=== PATIENT | female | born 1945 | race Caucasian/White ===

== ENCOUNTER → 2017-01-08 16:56 | Outpatient (CLI) | payer BC, MEDICARE ==
[2015-07-19 23:37] VITALS: BMI 33.3
[~2017-01-08 16:56] MED LIST: ACETAMINOPHEN500 M1 PO; AUGMENTIN 875-11 TAB PO; BETAPACE 120 M120 MG PO; CARDIZEM CD180 MG PO; CARDURA2 MG PO; CELEXA10 MG PO; FLAGYL500 MG PO; FLUTICASONE PRO16 GM NS; GLUCOPHAGE1000 MG PO; HCTZ25 MG PO; PRAVACHOL20 MG PO; PRINIVIL20 MG PO; SORINE80 MG PO; TIAZAC/CARDIZE240 M1 PO; ZYRTEC10 MG PO
== END | disposition home or self-care (01) ==
LOC: D.MAMMO 16:00
DX: Z12.31 Encounter for screening mammogram for malignant neoplasm of breast (principal)

== ENCOUNTER → 2017-01-16 16:35 | Outpatient (CLI) | payer BC, MEDICARE ==
[2015-07-19 23:37] VITALS: BMI 33.3
== END | disposition home or self-care (01) ==
LOC: D.MAMMO 11:30
DX: R92.8 Other abnormal and inconclusive findings on diagnostic imaging of breast (principal)

== ENCOUNTER 2017-01-27 17:33 | Inpatient (IN) | payer MEDICARE ==
[~2017-01-27] VITALS: Ht 160 cm; Wt 78.6 kg
--- NOTE | ~2017-01-27 | HEMODYNAMI ---
PATIENT:GILBERTO SAMAYOA MEDICAL RECORD: [id number] : 49 LOCATION:[address] ADMISSION DATE: 01/27/17 Generatedon:02/02/201710:45 Patient name: GILBERTO SAMAYOA Patient #: [id number] SSN: DO B: 1945 Date of study: 02/02/2017 Page: Of Hemodynamic Procedure Report Patient Data Patient Demographics Procedure consent was obtained First Name: GILBERTO Gender: Female Last Name: YAO : 1945 Patient #: [id number] Age: 71 year(s) Race: Additional ID: [id number] Contact details [address]: [address] [place] [address] State: [place] City: [place] Zip code: [address] Past Medical History Allergies Allergen Reaction Date Comments Reported Grains 07/20/2015 Admission Admission Data Admission Date: 01/27/2017 Admission Time: 18:30 Room #: [facility] Procedure Procedure Types Cath Procedure Diagnostic Procedure PPM/ICD PPM Dual Implant Procedure Description Procedure Date Procedure Date: 02/02/2017 Procedure Start Time: 9:52 Procedure End Time: 10:44 Procedure Staff Name Function Samy Chan MD Performing Physician Yuan Madden RT Scrub Bekah Pastrana RN Nurse Yuan Madden RT Monitor Procedure Data Cath Procedure Fluoroscopy Diagnostic fluoroscopy Total fluoroscopy Time: 6.5 time: 6.5 min min Diagnostic fluoroscopy Total fluoroscopy dose: 172 dose: 172 mGy mGy Contrast Material Contrast Material Type Amount (ml) Visipaque 270 10 Procedure Medications Medication Administration Route Dosage Ancef (1Gm/50ml NS) I.V.P.B 1 g Ancef Irrigation Topical 1 g (1gm/500ml NS) Lidocaine 1% added to field 20 Versed I.V. 2 mg Fentanyl I.V. 25 mcg Versed I.V. 1 mg Lopressor I.V. 5 mg Heparin Flush Bag added to field 1 bags (1000units/500ml NS) Hemodynamics Rest Heart Rate: 62 (bpm) Snapshots Pre Cath Intra NCS Post Cath Vital Signs Time Heart Resp SPO2 NIBP (mmHg) Rhythm Pain Sedation Rate (ipm) (%) Status Level (bpm) 9:30:51 63 19 97 239/120(202) NSR 0 (11) 10(A) , No pain 9:35:37 62 14 97 230/118(177) NSR 0 (11) 10(A) , No pain 9:40:30 63 17 96 236/115(190) NSR 0 (11) 10(A) , No pain 9:45:05 61 14 99 211/110(181) NSR 0 (11) 10(A) , No pain 9:50:47 98 15 100 216/105(174) NSR 0 (11) 10(A) , No pain 9:55:21 65 16 97 207/108(163) NSR 0 (11) 9(A) , No pain 10:01:05 67 15 95 222/109(170) NSR 0 (11) 9(A) , No pain 10:05:38 66 16 95 207/113(171) NSR 0 (11) 9(A) , No pain 10:10:10 64 16 94 204/109(172) NSR 0 (11) 9(A) , No pain 10:14:45 57 16 94 208/98(174) NSR 0 (11) 9(A) , No pain 10:20:29 58 15 97 219/117(166) NSR 0 (11) 9(A) , No pain 10:25:07 59 15 100 220/112(185) NSR 0 (11) 9(A) , No pain 10:29:52 62 14 100 222/112(175) NSR 0 (11) 10(A) , No pain 10:34:35 60 16 100 212/114(185) NSR 0 (11) 10(A) , No pain 10:39:34 63 10 100 Measuring NSR 0 (11) 10(A) , No pain 10:40:58 62 11 100 Time NSR 0 (11) 10(A) Exceeded , No pain Medications Time Medication Route Dose Verified Delivered Reason Notes E ffectiveness by by 9:26:31 Ancef (1Gm/50ml I.V.P.B 1 g Samy Buffie used for NS) Rocio Pastrana RN procedure 9:41:55 Ancef Irrigation Topical 1 g Samy Buffie used for (1gm/500ml NS) Rocio Pastrana RN procedure 9:42:28 Lidocaine 1% added 20ml Samy Samy for local to vial Rocio Chan MD anesthetic field 9:43:36 Heparin Flush added 1 Samy Buffie Bag to bags Rocio Pastrana RN (1000units/500ml field TREJO NS) 9:53:24 Versed I.V. 2 mg Samy Buffie for sedation Rocio Pastrana RN, MD 9:53:30 Fentanyl I.V. 25 Samy Buffie for sedation mcg Rocio Pastrana RN, MD 10:07:05 Versed I.V. 1 mg Samy Buffie for sedation Rocio Pastrana RN, MD 10:11:57 Lopressor I.V. 5 mg Samy Buffie for Rocio Pastrana RN hypertension MD Procedure Log Time Note 8:54:31 Informed consent obtained and on chart 8:54:35 Diagnostic Cath Status : Elective 8:55:58 Yuan Madden RT(R) (CV) sent for patient. Start room use. 8:56:23 Time tracking: Regular hours 8:56:28 Plan of Care:Hemodynamics will remain stable., Cardiac rhythm will remain stable., Comfort level will be maintained., Respiratory function will remain adequate., Patient/ family verbilizes understanding of procedure., Procedure tolerated without complication., Recovers from procedure without complications.. 9:26:31 Ancef (1Gm/50ml NS) 1 g I.V.P.B was administered by Bekah Pastrana RN; used for procedure; 9:26:32 Patient received from Med II to CCL 3 Alert and oriented. Tansferred to table in Supine position. 9:28:11 Warm blankets applied, and antonio hugger turned on for patient comfort. 9:28:12 Correct patient and procedure confirmed by team. 9:28:13 ECG and BP/O2 sat monitors applied to patient. 9:28:14 Vital chart was started 9:28:17 Baseline sample Acquired. 9:28:24 Rhythm: sinus rhythm 9:28:40 PATIENT HAS SICK SINUS SYNDROME 9:28:42 Full Disclosure recording started 9:33:12 H&P Date Dictated: 01/27/2017 ER History on chart.. 9:33:23 Pre-procedure instructions explained to patient. 9:33:46 Pre-op teaching completed and patient verbalized understanding. 9:33:59 Family in patients room. 9:34:05 Patient NPO since Midnight. 9:34:10 Is the patient allergic to Iodine/contrast media? No. 9:35:51 Use device set Pacemaker Set 9:36:01 Immobilizer Sling Small opened to sterile field. 9:36:15 Medline Cath Pack opened to sterile field. 9:36:34 Previous problem with sedation/anesthesia? No ? 9:36:53 Snore? Yes 9:40:50 Patient diabetic? Yes. 9:40:51 If diabetic: On Metformin? Yes 9:40:57 If on Metformin: Last Dose? 01/31/2017 9:41:00 Sleep apnea? No 9:41:02 Deviated septum? No 9:41:03 Opens mouth fully? Yes 9:41:05 Sticks out tongue? Yes 9:41:20 Airway obstruction? No ? 9:41:26 Patient pain scale 0/10 ?. 9:41:44 IV patent on arrival in left hand with 0.9% NaCl at KVO. 9:41:55 Ancef Irrigation (1gm/500ml NS) 1 g Topical was administered by Bekah Pastrana RN; used for procedure; 9:42:10 IV started by Bekah Pastrana RN inleft antecubital with a 18 gauge IV catheter with 0.9% NaCl at KVO. 9:42:28 Lidocaine 1% 20ml vial added to field was administered by Samy Chan MD; for local anesthetic; 9:42:33 Left chest area was prepped with chlora-prep and draped in sterile fashion 9:43:36 Heparin Flush Bag (1000units/500ml NS) 1 bags added to field was administered by Bekah Pastrana RN; ; 9:43:47 Medtronic medical sales representative SHANI DENNISOE present for procedure. 9:44:43 Pre sharps counted by scrub and verified by RN: Sutures: 2 Sponges: 5 Stick needles: 4 Skin needles: 2 Blade: 1 Cautery: 1 9:45:18 Grounding pad site Left thigh. 9:46:26 Micropuncture VSI 4FR kit opened to sterile field. 9:46:27 Micropuncture VSI 4FR kit opened to sterile field. 9:47:32 2.0 Silk 685H opened to sterile field. 9:47:33 Cautery Tip Executive Coach opened to sterile field. 9:47:41 3.0 Vicryl Single Pack [id number] opened to sterile field. 9:48:19 Medtronic Advisa MRI PPM Dual Generator opened to sterile field. 9:48:59 Medtronic 5076-45 PPM Lead opened to sterile field. 9:49:05 Medtronic 4074-52 PPM Lead opened to sterile field. 9:52:29 Procedure started. 9:52:37 Physician arrived 9:52:37 --------ALL STOP TIME OUT------ 9:52:38 Final Timeout: patient, procedure, and site verified with staff and physician. All members of the team are in agreement. 9:52:40 Left chest site verified by team. 9:52:43 Physical assessment completed. ASA score P 2 - A patient with mild systemic disease as per Samy Chan MD. 9:52:47 Sedation plan: IV Moderate Sedation Versed, Fentanyl 9:52:57 Grounding pad site free from injury. 9:53:24 Versed 2 mg I.V. was administered by Bekah Pastrana RN; for sedation; 9:53:30 Fentanyl 25 mcg I.V. was administered by Bekah Pastrana RN; for sedation; 9:53:45 Lidocaine 2% to left subclavicular area by Samy Chan MD. 9:53:58 Incision made to left subclavicular area. 9:54:51 Generator pocket made/opened. 9:56:21 IV Extension Set opened to sterile field. 9:56:22 IV Extension Set opened to sterile field. 10:01:10 MICRO PUNCTURE USED FOR ACCESS X 2 10:02:09 7Fr Safe Sheath opened to sterile field. 10:02:10 7Fr Safe Sheath opened to sterile field. 10:02:32 Left subclavian vein accessed with 7Fr Safe Sheath. 10:06:12 Ventricular lead inserted and advanced. 10:06:[address] Peel-a-way sheath was split and removed. 10:06:20 Atrial lead inserted and advanced. 10:06:21 Peel-a-way sheath was split and removed. 10:07:05 Versed 1 mg I.V. was administered by Bekah Pastrana RN; for sedation; 10:07:20 Baseline sample Acquired. 10:07:43 Ventricular lead positioned. 10:07:48 Ventricular lead tested. 10:09:45 Ventricular lead repositioned. 10:11:38 Ventricular lead tested. 10:11:44 Atrial lead positioned. 10:11:57 Lopressor 5 mg I.V. was administered by Bekah Pastrana RN; for hypertension; 10:14:49 Atrial lead tested. 10:22:09 Ventricular lead attachment was completed with 2-0 silk. 10:24:14 Atrial lead attachment was completed with 2-0 silk. 10:25:46 PPM Dual was attached to lead(s) and inserted into pocket. 10:28:06 Subcutaneous closure was completed with 3-0 vicryl. 10:28:53 SKIN CLOSED WITH LJ 10:32:08 SITE COVERED WITH EYE PATCH AND PRESSURE DRESSING 10:32:32 PARAMETERS PLACED IN CHART 10:32:39 Procedure ended.(Physican Out) 10:35:33 Fluoroscopy time 06.50 minutes. 10:35:41 Fluoroscopy dose: 172 mGy 10:35:41 Flurop Dose total: 172 10:35:47 Contrast amount:Visipaque 270 10ml. 10:39:28 Sharps counted by scrub and verified by R.N. 10:43:40 Post procedure instruction explained to patient.Patient verbalizes understanding. 10:43:40 Patient needs reinforcement of post procedure teaching. 10:43:41 Procedure and supply charges have been captured, reviewed, submitted and are correct. 10:43:48 Post-procedure physical assessment completed. ASA score P 2 - A patient with mild systemic disease as per Samy Chan MD. 10:43:53 Vital chart was stopped 10:43:54 See physician's report for complete and final results. 10:43:59 Report given to Med II. 10:44:04 Patient transfered to Med II with Bed. 10:44:08 Procedure ended. 10:44:08 Full Disclosure recording stopped 10:44:12 End room use (Document Last) Device Usage Item Name Manufacture Quantity Catalog Hospital Part Current Minimal Lot# / Number Charge Number Stock Stock Serial# Code Immobilizer Cardinal 1 [id number] 201744 5 Sling Small Health Medline Cath Cardinal 1 [id number] 25725 [id number] 5 Pack Health Micropuncture VSI VASCULAR 2 [id number] 407343 601256 5 VSI 4FR kit SOLUTIONS 2.0 Silk 685H Ethicon 1 685H 876678 90561 614406 5 Cautery Tip Microtek 1 [id number] 690508 449389 302680 5 Executive [employer] 3.0 Vicryl Ethicon 1 [id number] 364966 220009 5 Single Pack [id number] Medtronic Medtronic 1 [id number] 835378 5 Advisa MRI PPM Dual Generator Medtronic Medtronic 1 5076-45 018326 482975 5 5076-45 PPM Lead Medtronic Medtronic 1 4074-52 608974 268189 5 4074-52 PPM Lead IV Extension Hospira 2 75967-85 589911 93077 712576 5 Set 7Fr Safe Microtek 2 [id number] [id number] 365355 494288 10 [employer] Signature Audit [place] Stage Time Signature Unsigned Intra-Procedure 02/02/2017 Yuan Madden 10:45:27 AM RT(R) (CV) Signatures Monitor : Yuan Madden RT Signature : Date : Time : [id number] [place] [address]
[2017-01-27 18:06] LABS: BASOPHILS 0.4 % (0-2); EOSINOPHILS 4.2 % (0-7); HEMOGLOBIN 10.9 g/dL (12-16); IMMATURE GRANULOCYTES 0.2 % (0-5); LYMPHOCYTES 22.3 % (15-50); MCH 28.1 pg (26.0-34.0); MCV 85.1 fL (80.0-100.0); MEAN PLATELET VOLUME 10.9 fL (7.4-10.4); MONOCYTES 7.3 % (2-11); NEUTROPHILS 65.6 % (40-80); PLATELET COUNT 207 10x3/uL (130-400); RBC 3.88 10x6/uL (4.00-5.40); RDW 15.6 % (11.5-14.5); WBC 8.4 10x3/uL (4.8-10.8)
[2017-01-27 18:20] LABS: ALBUMIN 3.4 g/dL (3.4-5.0); ANION GAP 17.1 mmol/L (8-16); BILIRUBIN - TOTAL 0.17 mg/dL (0.2-1.3); CALCIUM 8.8 mg/dL (8.5-10.1); CARBON DIOXIDE 23.1 mmol/L (21.0-32.0); CREATININE - SERUM 2.8 mg/dL (0.6-1.3); POTASSIUM - SERUM 5.2 mmol/L (3.5-5.1); PROTEIN - SERUM 6.4 g/dL (6.4-8.2)
[2017-01-27 19:00] VITALS: BP 167/74
--- NOTE | 2017-01-27 19:20 | NUR ---
REPORT RECIEVED. PT RECIEVED FROM ER. HR 36 SINUS VENICE. BP 161/57 DENIES PAIN OR NEEDS AT THIS TIME. ASSESSMENT COMPLETE PER FLOW SHEET. WILL CONTINUE TO MONITOR
[2017-01-27 19:54] VITALS: BP 161/64; BMI 30.8
[2017-01-27 20:00] VITALS: BP 161/64
--- NOTE | 2017-01-27 20:37 | NUR ---
FAMILY AT BEDSIDE. GIVEN UPDATE. VSS. HR 54 SINUS VENICE
[2017-01-27 21:00] VITALS: BP 180/73
--- NOTE | 2017-01-27 21:13 | NUR ---
ST KIMBERLY HECTOR. GIVEN UPDATE BP 190/68 HR SUSTAINING AT 52 SINUS VENICE FOR PAST HR. T ORDER RECIEVED. GIVEN UPDATE PT REQUEST TO BE DNR STATUS CONFIRMED BY 2 RN'S. MARIA VICTORIA. WILL ADM.
--- NOTE | 2017-01-27 21:38 | NUR ---
DR DAVIDSON AT BEDSIDE. GIVEN UPDATE.
[2017-01-27 22:00] VITALS: BP 185/77
[2017-01-27 22:07] LABS: MAGNESIUM - SERUM 2.6 mg/dL (1.8-2.4); THYROID STIMULATING HORMONE 1.78 uIU/mL (0.36-3.74)
[2017-01-27 23:00] VITALS: BP 162/61
--- NOTE | 2017-01-27 23:10 | NUR ---
REASSESSMENT COMPLETE PER FLOW SHEET. VSS. NO NEW CHANGES. WILL CONTNIUE TO MONITOR
[2017-01-28] VITALS (25 sets, daily range): BP systolic 100–184; BP diastolic 48–83; Ht 160 cm; Wt 78.6 kg
--- NOTE | 2017-01-28 00:46 | NUR ---
NO NEW CHANGES. PT SLEEPING COMFORTABLY. WILL CONTINUE TO MONITOR
--- NOTE | 2017-01-28 01:30 | NUR ---
PT HR NOTED AT 29 JUNCTIONAL RYTHM. VERBAL STUMULI ADM. PT STATES IS OKAY. ASSISTED TO BEDSIDE COMMODE. WITH AMBULATION HR NOW 67 ASSISTED BACK TO BED. DENIES FURTHER NEEDS.
--- NOTE | 2017-01-28 03:00 | NUR ---
REASSESSMENT COMPLETE PER FLOW SHEET. VSS NO NEW CHANGES. WILL CONTINUE TO MONITOR
[2017-01-28 05:04] LABS: ANION GAP 13.4 mmol/L (8-16); CALCIUM 9.2 mg/dL (8.5-10.1); CARBON DIOXIDE 25.5 mmol/L (21.0-32.0); CREATININE - SERUM 2.5 mg/dL (0.6-1.3); POTASSIUM - SERUM 4.9 mmol/L (3.5-5.1)
--- NOTE | 2017-01-28 05:12 | NUR ---
ASSISTED TO BR. 100 CC GLENN URINE NOTED. VSS. NO NEW CHANGES WILL CONTINUE TO MONITOR
--- NOTE | 2017-01-28 07:15 | NUR ---
REPORT RECIEVED FROM ELECTRONICS DETAIL DRAFTSPERSON NURSE. PT RESTING QUIETLY IN BED. NO S/SX OF ACUTE DISTRESS NOTED AT THIS TIME. SINUS VENICE ON CM. PT ASYMPTOMATIC WITH BRADYCARDIA. FULL ASSESSEMENT COMPLETER PER FLOWSHEET. REFER FOR DETAILS. CALL LIHT IN REACH. BED IN LOW POSITION. WILL CONT TO ASSESS FOR CHANGES.
--- NOTE | 2017-01-28 09:15 | NUR ---
DR. DANIEL AND THEODORA YANEZ AT BEDSIDE. UPDATE PROVIDED. ORDER RECIEVED FOR LITER BOLUS OF NS AT 150CC/HR.
--- NOTE | 2017-01-28 09:34 | NUR ---
* Is the patient Alert and Oriented? Yes 0 * How many steps to enter\\exit or inside your home? 1 0 * PCP Dr. William 0 * Pharmacy [facility] 0 * Preadmission Environment Home Alone 0 * ADLs Independent 0 * Equipment Bedside Commode Rolling Walker 0 * List name and contact numbers for known caregivers / representatives who currently or will assist patient after discharge: Greta Covarrubias [phone] 0 * Additional services required to return to the preadmission environment? No 0 * Can the patient safely return to the preadmission environment? Yes 0 * Has this patient been hospitalized within the prior 30 days at any hospital? No Patient Name: GILBERTO SAMAYOA Admission Status: ER Accout number: [id number] Admission Date: 01-27-2017 : 1945 Admission Diagnosis: Attending: REBECA Current LOS: 1 Planned Disposition: Home Primary Insurance: MEDICARE A & B Discharge Planning Comments: CM met with patient to assess dc plans/needs. Patient is alert & oriented, but took her several seconds to be able to tell me her daughters name - she was "drawing a blank because she has had a lot going on lately". This was the only question she had difficulty with. She reports she is independent with all ADL's & IADL's. She states she has a walker & BSC from previous surgery but does not use them. She denies having home health services. Discussed possible HH referral at discharge. She prefers not to have HH but states she would agree if needed. CM will follow & assist as needed. Business Office Director: Malena Velazquez
--- NOTE | 2017-01-28 11:00 | NUR ---
REASSESSMENT COMPLETE PER FLOWSHEET. NO CHANGES NOTED AT THIS TIME.
--- NOTE | 2017-01-28 13:00 | NUR ---
DAUGHTER AT BEDSIDE. UPDATE PROVIDED. DAUGHTER BROUGHT PT'S PERSONAL BELONGINGS.
--- NOTE | 2017-01-28 15:00 | NUR ---
ASSISITED OOB TO BATHROOM. MIN ASSIST REQUIRED.
--- NOTE | 2017-01-28 17:15 | NUR ---
ATE 100% OF MEAL. CALL LIGHT IN REACH. DENIES NEEDS AT THIS TIME.
--- NOTE | 2017-01-28 19:00 | NUR ---
REPORT RECEIVED. ASSESSMENT COMPLETE PER FLOW SHEET. PT LAYING IN BED ALERT AND ORIENTED. 2 L O2 VIA NC. S1S2 PRESENT. PERIPHERAL PULSES PALP. TELEMETRY MONITORING RATE OF 65. RT WRIST PIV INFUSING NS AT 75 MLS/HR. LT AC PIV, SALINE LOCK. SEE FLOW SHEET FOR COMPLETE ASSESSMENT. WATER PROVIDED. CALL LIGHT AND BELONGINS WITHIN REACH. DENIES NEEDS AT THIS TIME. WILL CONTINUE TO MONITOR.
--- NOTE | 2017-01-28 19:00 | NUR ---
REPORT RECEIVED. ASSESSMENT COMPLETE PER FLOW SHEET. PT LAYING IN BED, ALERT AND ORIENTED. S1S2 PRESENT. TELEMETRY MONITORING RATE OF 65. 2 L NC. PERIPHERAL PULSES PALP. RT WRIST PIV INFUSING NS AT 75 MLS/HR. L AC PIV, SALINE LOCK. WATER PROVIDED. CALL LIGHT AND BELONGINGS WITHIN REACH. DENIES NEEDS AT THIS TIME. BED IN LOWEST POSITION. WILL CONTINUE TO MONITOR.
--- NOTE | 2017-01-28 21:00 | NUR ---
COMPLETE BED LINENS CHANGED. NEW HOSPITAL GOWN PROVIDED. WATER PROVIDED. CALL LIGHT AND BELONGINGS AT BEDSIDE. DENIES FURTHER NEEDS. WILL CONTINUE TO MONITOR.
--- NOTE | 2017-01-28 21:15 | NUR ---
DAUGHTER AT BEDSIDE. UPDATE GIVEN. QUESTIONS ANSWERED. PT DENIES NEEDS AT THIS TIME. CALL LIGHT WITHIN REACH.
--- NOTE | 2017-01-28 22:05 | NUR ---
ASSISTED TO BATHROOM. 350 MLS OF CLEAR YELLOW URINE NOTED. PT BACK IN BED. CALL LIGHT AND BELONGINGS WITHIN REACH. WILL CONTINUE TO MONITOR.
[2017-01-28 22:41] LABS: APPEARANCE CLEAR (CLEAR); BILIRUBIN NEGATIVE (NEGATIVE); COLOR YELLOW (YELLOW); GLUCOSE NEGATIVE (NEGATIVE); KETONE NEGATIVE (NEGATIVE); LEUKOCYTE ESTERASE NEGATIVE (NEGATIVE); NITRITE NEGATIVE (NEGATIVE); PROTEIN NEGATIVE (NEGATIVE); UROBILINOGEN NORMAL (NORMAL)
--- NOTE | 2017-01-28 23:00 | NUR ---
REASSESSMENT COMPLETE PER FLOW SHEET, SEE FOR DETAILS. NO ACUTE CHANGES NOTED. CALL LIGHT AND BELONGINGS WITHIN REACH. DENIES NEEDS. WILL CONTINUE TO MONITOR.
--- NOTE | 2017-01-28 23:50 | NUR ---
ASSISTED TO BATHROOM 120 MLS OF CLEAR YELLOW URINE NOTED. PT BACK IN BED. CALL LIGHT AND BELONGINGS WITHIN REACH.
[2017-01-29] VITALS (16 sets, daily range): BP systolic 151–206; BP diastolic 56–87
--- NOTE | 2017-01-29 00:45 | NUR ---
ASSISTED TO BATHROOM. 250 MLS OF CLEAR YELLOW URINE NOTED. PT BACK IN BED. CALL LIGHT AND BELONGINGS WITHIN REACH.
--- NOTE | 2017-01-29 01:00 | NUR ---
LAYING IN BED RESTING. DENIES NEEDS AT THIS TIME. CALL LIGHT AND BELONGINGS WITHIN REACH. WILL CONTINUE TO MONITOR.
--- NOTE | 2017-01-29 02:15 | NUR ---
ASSISTED TO BATHROOM. 150 MLS OF CLEAR YELLOW URINE NOTED. PT BACK IN BED. WILL CONTINUE TO MONITOR.
--- NOTE | 2017-01-29 03:00 | NUR ---
REASSESMENT COMPLETE, SEE FLOW SHEET FOR DETAILS. NO ACUTE CHANGES NOTED. DENIES NEEDS AT THIS TIME. CALL LIGHT WITHIN REACH. BED IN LOWEST POSITION.
--- NOTE | 2017-01-29 04:03 | NUR ---
ASSISTED TO BATHROOM. 175 MLS OF CLEAR YELLOW URINE NOTED. PT BACK IN BED. WILL CONTINUE TO MONITOR.
[2017-01-29 04:56] LABS: CALCIUM 8.9 mg/dL (8.5-10.1); CARBON DIOXIDE 27.4 mmol/L (21.0-32.0); CREATININE - SERUM 1.9 mg/dL (0.6-1.3); POTASSIUM - SERUM 4.4 mmol/L (3.5-5.1)
--- NOTE | 2017-01-29 07:00 | NUR ---
Received report and assumed care of patient. Patient currently alseep, arouses to voice. Sinus rhythm in the low 70s on CM. SBP elevated.
--- NOTE | 2017-01-29 08:23 | NUR ---
Patient up to Bathroom with stand by. Patient ambulates well, steady gait. SBP increased, HR sinus 60s. Patient to chair, set up with breakfast tray. Call light in lap. Denies needs. C/o headache.
--- NOTE | 2017-01-29 09:40 | NUR ---
Paged Dr. Francois regarding need for Tylenol order, orders received. Informed to call about requesting a Pacemaker for patient as current hospital problem has been documented in the past.
--- NOTE | 2017-01-29 10:17 | NUR ---
Spoke to new order for [facility] for SBP received. Order for patient to tx to floor. does not believe patient needs pacemaker at this time and thinks she needs to go home on meds other than beta blockers.
--- NOTE | 2017-01-29 11:23 | NUR ---
Patient resting, informed of transfer orders. Denies needs.
--- NOTE | 2017-01-29 11:50 | NUR ---
Lunch tray set at bedside table, patient left to sleep.
--- NOTE | 2017-01-29 12:50 | NUR ---
Patients kelp gatherer in for visit. Patient up to chair for lunch, denies needs.
--- NOTE | 2017-01-29 13:24 | NUR ---
in to see patient.
--- NOTE | 2017-01-29 13:45 | NUR ---
Report called to CHADWICK Saldivar.
--- NOTE | 2017-01-29 14:19 | NUR ---
Patient taken to 2131 via wheelchair. Janna GENAO informed, patients daughter Ailyn called and informed of patient transfer per patients request.
--- NOTE | 2017-01-29 14:26 | NUR ---
ARRIVED FROM CVICU. AWAKE AND ALERT. PT IS DRESSED IN REGULAR CLOTHES AND AMBULATING IN ROOM. WILL CONTINUE TO MONITOR.
--- NOTE | 2017-01-29 19:10 | NUR ---
PT SITTING IN BED DAUGHTER IN ROOM. DENIES NEEDS AT THIS TIME WILL CONTINUE TO MONITOR.
--- NOTE | 2017-01-30 02:31 | NUR ---
PT STARTED SHOWING AFIB ON THE MONITOR AT MIDNIGHT. AT 0215 PT HAD A 4.2 SECOND PERIOD OF ASYSTOLE.
[2017-01-30 05:24] VITALS: BP 191/128
[2017-01-30 06:22] LABS: BASOPHILS 0.5 % (0-2); EOSINOPHILS 7.4 % (0-7); HEMATOCRIT 39.3 % (36.0-48.0); IMMATURE GRANULOCYTES 0.2 % (0-5); MCH 27.7 pg (26.0-34.0); MCHC 33.1 g/dL (31.0-37.0); MCV 83.8 fL (80.0-100.0); MEAN PLATELET VOLUME 10.5 fL (7.4-10.4); MONOCYTES 8.8 % (2-11); NEUTROPHILS 59.1 % (40-80); PLATELET COUNT 205 10x3/uL (130-400); RBC 4.69 10x6/uL (4.00-5.40); RDW 15.3 % (11.5-14.5); WBC 6.3 10x3/uL (4.8-10.8)
[2017-01-30 06:39] LABS: ANION GAP 12.2 mmol/L (8-16); CALCIUM 8.8 mg/dL (8.5-10.1); CARBON DIOXIDE 25.8 mmol/L (21.0-32.0)
[2017-01-30 06:40] LABS: CREATININE - SERUM 1.4 mg/dL (0.6-1.3)
[2017-01-30 07:43] VITALS: BP 183/106
--- NOTE | 2017-01-30 08:00 | NUR ---
PT RESTING QUIETLY IN BED
--- NOTE | 2017-01-30 08:59 | NUR ---
BEFORE STARTING AMIORDARONE DRIP. BP 180/90 HR 118 UCAF PER MONITOR.
--- NOTE | 2017-01-30 10:28 | NUR ---
SPOKE WITH DREA AT DR. CAMARILLO'S OFFICE. AT 1018 PT HAD A 2.5 SECOND PAUSE. WENT TO PTS ROOM AT 1020 BP 160/90. PT WENT RIGHT BACK INTO AF HR 106. PT STATED SHE FELT LIKE SHE WAS GOING TO PASS OUT. DREA WAS MADE AWARE OF ALL OF THIS. DREA IS TO CALL BACK WITH ORDERS AND PARAMATERS AND WHEN DR. CHEW WANTS TO BE CALLED.
--- NOTE | 2017-01-30 10:42 | NUR ---
DREA WITH DR. CHEW CALLED AND SAID TO CALL IF PAUSES GET GREATER THAN 3.0 SECONDS. HR GREATER THAN 160 OR BELOW 40.
--- NOTE | 2017-01-30 13:21 | NUR ---
PT CONVERTED TO SR NOW PER CARRIER BLOWER
[2017-01-30 15:45] VITALS: BP 168/78
--- NOTE | 2017-01-30 18:25 | NUR ---
PT STATES SHE FEELS ALOT BETTER THAN THIS AM, DENIES NEEDS.
--- NOTE | 2017-01-30 19:24 | NUR ---
PT IN BED ATTENTION FOCUSED ON TELEVISION. DENIES NEEDS AT THIS TIME. WILL CONTINUE TO MONITOR.
[2017-01-30 20:00] VITALS: BP 193/88
--- NOTE | 2017-01-30 23:56 | NUR ---
PT IN BED RESTING AT THIS TIME. EVEN AND UNLABORED RESPIRATIONS NOTED. EQUAL RISE AND FALL OF THE CHES NOTED
[2017-01-31] VITALS: BP 170/80
[2017-01-31 04:00] VITALS: BP 156/76
--- NOTE | 2017-01-31 05:29 | NUR ---
ASSUMMED PRIMARY CARE OF PATIENT. PATIENT IS DNR CODE STATUS. RESTING WITH EYES CLOSED, RESP ARE EVEN AND NON LABORED. RIGHT WRSIT SEEN WITH SUMAYA VENTURA WITH AMRODARONE DRIP AT 17. WILL CONTINUE TO FOLLOW.
--- NOTE | 2017-01-31 06:15 | NUR ---
POC GLUCOSE IS 117. NO INSULING PER SLIDING SCALE. PATIENT IS IN RESTROOM WASHING UP FOR AM CARE. COMPLETE BED LINEN CHANGED.
--- NOTE | 2017-01-31 07:45 | NUR ---
AM ROUNDING DONE WITH NEW IV RE-SITED TO LEFT FA WITH NS INFUSING AT KVO AND CAORARONE DRIP INFUSING AT 17 CC/HR. OLD IV TO RIGHT IS REMOVED WITH CATH TIP INTACT. COMPLAINED OF HEADACHE, TYLENOL GIVEN PER REQUEST. ON HEART MONITOR SHOWING SB, HR 54. DNR CODE STATUS. WILL CPOC.
[2017-01-31 08:04] VITALS: BP 194/79
[2017-01-31 13:02] VITALS: BP 175/77
[2017-01-31 16:26] VITALS: BP 189/83
--- NOTE | 2017-01-31 19:30 | NUR ---
RECEIVED REPORT, WILL ASSUME CARE OF PT, PT SITTING UP IN BED, DENIES ANY NEEDS, BED IS LOW, SRX2, CALL LIGHT IN REACH, WILL CONTINUE PLAN OF CARE
[2017-01-31 20:00] VITALS: BP 203/78
[2017-02-01] VITALS: BP 164/71
--- NOTE | 2017-02-01 02:12 | NUR ---
ASSESSMENT COMPLETE, TELEMTRY-SR, IV-NS-KVO, CORDARONE-17, PT IS ACHS, BED IS LOW, SRX2, CALL LIGHT IN REACH, WILL CONTINUE PLAN OF CARE
[2017-02-01 04:00] VITALS: BP 182/62
[2017-02-01 05:14] LABS: BASOPHILS 0.5 % (0-2); HEMATOCRIT 35.9 % (36.0-48.0); IMMATURE GRANULOCYTES 0.2 % (0-5); LYMPHOCYTES 20.8 % (15-50); MCH 27.5 pg (26.0-34.0); MCHC 33.4 g/dL (31.0-37.0); MCV 82.3 fL (80.0-100.0); MEAN PLATELET VOLUME 9.4 fL (7.4-10.4); MONOCYTES 6.3 % (2-11); NEUTROPHILS 62.2 % (40-80); PLATELET COUNT 172 10x3/uL (130-400); RBC 4.36 10x6/uL (4.00-5.40); WBC 5.9 10x3/uL (4.8-10.8)
[2017-02-01 05:30] LABS: ANION GAP 11.3 mmol/L (8-16); CALCIUM 8.5 mg/dL (8.5-10.1); CARBON DIOXIDE 27.4 mmol/L (21.0-32.0); CREATININE - SERUM 1.4 mg/dL (0.6-1.3); POTASSIUM - SERUM 3.7 mmol/L (3.5-5.1)
--- NOTE | 2017-02-01 07:50 | NUR ---
AM ROUNDING DONE WITH PATIENT LAYING ON LEFT SIDE APPEARING TO BE ASLEEP. RESP ARE EVEN AND NON LABORED. ON HEART ONITOR SHOWING SB, HR 55. PATIENT IS DNR STATUS WITH EXCEPTIONS. ON ROOM AIR. LEFT FA SEEN WITH NS INFUSING AT KVO AND CORDARONE INFUSING AT 17 CC/HR. WILL CPOC.
[2017-02-01 08:13] VITALS: BP 170/75
--- NOTE | 2017-02-01 08:32 | NUR ---
IV RESITED TO LEFT HAND WITH 22 G X 1 STICK LEFT FA WAS GETTING RED AND IRRITATED PER PATIENT. TOLERATED WELL. OLD IV REMOVED WITH CATH TIP INTACT.
--- NOTE | 2017-02-01 11:51 | NUR ---
VISITING WITH FEMALE FRIEND, DENIES NEEDS AT PRESENT TIME. WILL CPOC.
[2017-02-01 12:01] VITALS: BP 196/73
--- NOTE | 2017-02-01 12:57 | NUR ---
1255-PERMITS FOR SURGERY SIGNED AND WITNESSED.
[2017-02-01 16:01] VITALS: BP 138/78
--- NOTE | 2017-02-01 16:45 | NUR ---
POC GLUCOSE IS 126, PER SLIDING SCALE NO INSULIN GIVEN.
--- NOTE | 2017-02-01 19:01 | NUR ---
20 G SALINE LOCK TO LEFT WRIST AREA. STILL HAS THE 22 G TO LEFT HAND.
--- NOTE | 2017-02-01 19:41 | NUR ---
PT LYING IN BED, TV ON, ASKED FOR TAPE TO TAPE IV BACK, BED IN LOW POSITION, CALL LIGHT IN REACH NO SIGNS OF DISTRESS
[2017-02-01 20:00] VITALS: BP 210/92
[2017-02-02] VITALS: BP 169/76
--- NOTE | 2017-02-02 01:06 | NUR ---
PT IS LYING IN BED, COMPLAINS OF BROWN, REFUSED TO TAKE ANYTHING FOR IT. BED IN LOW POSITION, CALL LIGHT IN REACH
--- NOTE | 2017-02-02 01:10 | NUR ---
CALL LIGHT IN REACH, WILL CONTINUE WITH PLAN OF CARE.
--- NOTE | 2017-02-02 03:02 | NUR ---
PT IS LYING IN BED ON HER BACK. EYES ARE CLSOSED, EVEN RISE AND FALL OF CHEST. NO SIGNS OF DISTRESS
[2017-02-02 04:00] VITALS: BP 212/76
[2017-02-02 04:43] LABS: BASOPHILS 0.2 % (0-2); EOSINOPHILS 9.4 % (0-7); HEMATOCRIT 36.7 % (36.0-48.0); HEMOGLOBIN 12.4 g/dL (12-16); IMMATURE GRANULOCYTES 0.2 % (0-5); LYMPHOCYTES 22.2 % (15-50); MCH 27.7 pg (26.0-34.0); MCHC 33.8 g/dL (31.0-37.0); MCV 81.9 fL (80.0-100.0); MEAN PLATELET VOLUME 9.6 fL (7.4-10.4); MONOCYTES 6.5 % (2-11); NEUTROPHILS 61.5 % (40-80); PLATELET COUNT 199 10x3/uL (130-400); RBC 4.48 10x6/uL (4.00-5.40); RDW 15.2 % (11.5-14.5); WBC 6.5 10x3/uL (4.8-10.8)
[2017-02-02 05:18] LABS: CALCIUM 8.7 mg/dL (8.5-10.1); CARBON DIOXIDE 25.6 mmol/L (21.0-32.0); CREATININE - SERUM 1.3 mg/dL (0.6-1.3); POTASSIUM - SERUM 3.6 mmol/L (3.5-5.1)
--- NOTE | 2017-02-02 07:16 | NUR ---
AM ROUNDS- PT IN BED, WITH EYES CLOSED. BED LOW AND WHEELS LOCKED, BEDSIDE RAILS X2, PT ON RA. LT HAND IV INFUSING NS AT KVO. LT WRIST IV, SL. CALL LIGHT IN REACH, NAD NOTED, WILL CONTINUE TO MONITOR.
--- NOTE | 2017-02-02 09:04 | NUR ---
PT TRANSFERED TO MANAGER INCOME TAX VIA BED, NAD NOTED.
[2017-02-02 09:30] VITALS: BP 194/72
--- NOTE | 2017-02-02 11:24 | NUR ---
PT TRANSFERED BACK TO ROOM 2132, DRESSING NOTED TO LT CHEST, SLING IN PLACE. VITAL SIGNS STABLE. PT DENIES ANY NEEDS AT THIS TIME. AM MEDS GIVEN, BLOOD SUGAR OF 112, NO COVERAGE NEEDED PER S/S. NAD NOTED, FAMILY AT BEDSIDE, WILL CONTINUE TO MONITOR.
[2017-02-02 12:12] VITALS: BP 190/96
--- NOTE | 2017-02-02 14:14 | NUR ---
PAGED DR. ROGERS. ASKED HIM IF PT STILL NEEDED TO BE ON AMIODORONE DRIP, OR IF COULD BE D.C AND START PT ON PO AMIODORONE. DR. ROGERS STATED TO STOP THE DRIP AND THAT HE WOULD START PO AMIODORONE TOMORROW. HE WILL ALSO BE BY LATER TO CHECK ON PT.
--- NOTE | 2017-02-02 14:58 | CN ---
PATIENT NAME:GILBERTO SAMAYOA MEDICAL RECORD: [id number] : 49 LOCATION:[facility] D.2132 ADMIT DATE: 01/27/17 ACCOUNT: [id number] CONSULTING PHYSICIAN: OSCAR DANIEL MD REFERRING PHYSICIAN: TAIWO ARTEAGA MD DATE OF CONSULTATION: 01/28/2017 HISTORY OF PRESENT ILLNESS: A 71-year-old female with a history of paroxysmal atrial fibrillation, structurally normal heart via diagnostic angiography via Dr. Grijalva approximately 9 months ago, admitted with a 2-3 day history of weakness, dizziness, noticed her pulse down to be found to be 26, was actually continued recommended medications. The patient is somewhat mildly confused when she brings her meds in and may have been taking higher doses of medications that were previously tried. We are asked to see her concerning her cardiovascular status. PAST MEDICAL HISTORY: Includes: 1. History of hypertension. 2. Hyperlipidemia. 3. Paroxysmal atrial fibrillation. 4. Diabetes mellitus. ALLERGIES: INCLUDE RIFAMPIN, LATEX, AEROSOLIZED INHALANTS, AND GRAINS. MEDICATIONS: Includes Zyrtec 10 p.o.q. day, diltiazem 180 p.o.q. day, Cardura 2 mg p.o. q.h.s., Pravastatin 20 q.h.s., sotalol 120 b.i.d., [id number] q. day, metformin a gram b.i.d. SOCIAL HISTORY: Lives at home apparently, lives independently. She is a nonsmoker. REVIEW OF SYSTEMS: Unreliable due to the patient factors. PHYSICAL EXAMINATION: GENERAL: Pleasant female in no acute distress, cooperative with exam. VITAL SIGNS: Pulse is currently 55 and sinus mechanism, blood pressure 140/66. HEENT: Normocephalic, atraumatic. NECK: No JVD or bruit. HEART: Regular. LUNGS: Good air excursion. ABDOMEN: Soft, nontender. EXTREMITIES: Pulses 2+. There is no edema. DIAGNOSTIC DATA: ECG initially showed a junctional escape rhythm. Currently shows sinus rhythm. IMPRESSION: Marked bradycardia, minimally symptomatic at the lowest rate. At this point in time, I suspect the combination of extra medication as well as intravascular volume depletion, gentle hydration, hold medications. Further recommendations based on clinical course. TRANSINT:[id number] Voice Confirmation ID: [id number] DOCUMENT ID: [id number] CONSULT REPORT [id number] GILBERTO SAMAYOA,OSCAR Dalal MD at 1458 CC: [id number] DICTATION DATE: 01/28/17 1205 REGISTERED NURSE MATERNAL CHILD: 01/28/172048 ADM IN [place] [id number] [place] [id number]
[2017-02-02 16:37] VITALS: BP 203/82
[2017-02-02 19:00] VITALS: BP 193/91
--- NOTE | 2017-02-02 19:20 | NUR ---
PT REST IN BED AND WATCH TV.
[2017-02-03] VITALS: BP 181/90
--- NOTE | 2017-02-03 01:01 | NUR ---
REST QUIETLY IN BED, EYE CLOSE, CALL LIGHT WITHIN REACH.
--- NOTE | 2017-02-03 03:37 | NUR ---
PT RESTING IN BED WITH NO DISTRESS. RESPS EVEN/NONLABORED. CPOC.
[2017-02-03 04:00] VITALS: BP 177/87
[2017-02-03 06:04] LABS: BASOPHILS 0.4 % (0-2); EOSINOPHILS 10.2 % (0-7); HEMATOCRIT 34.5 % (36.0-48.0); HEMOGLOBIN 11.6 g/dL (12-16); IMMATURE GRANULOCYTES 0.2 % (0-5); MCH 27.6 pg (26.0-34.0); MCHC 33.6 g/dL (31.0-37.0); MCV 82.1 fL (80.0-100.0); MEAN PLATELET VOLUME 9.2 fL (7.4-10.4); MONOCYTES 7.3 % (2-11); NEUTROPHILS 60.9 % (40-80); PLATELET COUNT 162 10x3/uL (130-400); RDW 15.5 % (11.5-14.5); WBC 5.4 10x3/uL (4.8-10.8)
[2017-02-03 06:23] LABS: ANION GAP 10.4 mmol/L (8-16); CALCIUM 8.7 mg/dL (8.5-10.1); CARBON DIOXIDE 26.3 mmol/L (21.0-32.0); CREATININE - SERUM 1.4 mg/dL (0.6-1.3); POTASSIUM - SERUM 3.7 mmol/L (3.5-5.1)
--- NOTE | 2017-02-03 07:30 | NUR ---
REPORT RECIEVED. PT RESTING QUIETLY, RR EVEN AND UNLABORED, PT DENIES NEEDS AT THIS TIME. IV RUNNING KVO. WILL CTM.
--- NOTE | 2017-02-03 08:00 | NUR ---
DR. ROGERS AT BESIDE, DISCUSSING DISCHARGE. PT VERBALIZED UNDERSTANDING. RR EVEN AND UNLABORED, WILL CTM.
[2017-02-03 08:10] VITALS: BP 163/88
[2017-02-03 12:04] VITALS: BP 196/91
[2017-02-03] MEDS ORDERED: COZAAR50 MG PO (14:06)
[2017-02-03] MEDS ORDERED: NORVASC10 MG PO (14:06)
[2017-02-03] MEDS ORDERED: PACERONE200 MG PO (14:07)
[2017-02-03] MEDS ORDERED: KEFLEX500 MG PO (14:08)
--- NOTE | 2017-02-03 15:30 | NUR ---
PT DISCHARGED. TOOK BP PRIOR TO PROVIDING DISCHARGE TEACHING, CURRENTLY 195/96. WILL FOLLOW UP WITH CHRISTINE YIP BEFORE DISCHARGING PT ABOUT PT CONDTION. WILL CTM.
--- NOTE | 2017-02-03 16:23 | NUR ---
SPOKE TO CHRISTINE YIP ABOUT PTS BP BEING HIGH. CHRISTINE GAVE VERBAL ORDER TO DISCHARGE PT EVEN THOUGH HER BLOOD PRESSURE WAS HIGH. INFORMED ME TO EXPLAIN TO PT TO KEEP BLOOD PRESSURE DIARY IN THE MORNING AND AT NIGHT, WELL HAVE A STRICT BLOOD PRESSURE MEDICATION TIME. PT VERBALIZED UNDERSTANDING. REMOVED BOTH IV CATHETERS WITH TIP INTACT, D/C TELEMETRY TO ADULT LITERACY INSTRUCTOR. D/C TEACHING GIVEN TO PATIENT AND FAMILY, BOTH VERBALIZED UNDERSTANDING. WILL BE TAKEN DOWNSTAIRS VIA WHEELCHAIR AND BE GOING HOME WITH FAMILY MEMBER.
--- NOTE | 2017-02-03 16:30 | NUR ---
Patient Name: GILBERTO SAMAYOA Admission Status: ER Accout number: [id number] Admission Date: 01-27-2017 : 1945 Admission Diagnosis:SHORTNESS OF BREATH Attending: REBECA Current LOS: 7 Anticipated DC Date: 02-03-2017 Planned Disposition: Home Primary Insurance: MEDICARE A & B Discharge Planning Comments: CM RECEIVED DISCHARGE ORDER, MET WITH PT IN ROOM TO DISCUSS DISCHARGE NEEDS AND PLANNING. CM DISCUSSED AVAILABILITY OF HOME HEALTH, REHAB SERVICES AND MEDICAL EQUIPMENT. PT DENIES DISCHARGE NEEDS. FAMILY TO TRANSPORT HOME AT DISCHARGE TODAY. IMPORTANT MESSAGE FROM [employer] PROVIDED AND EXPLAINED. STOCK CHASER NOTIFIED. Hosiery Repairer: Roge Carbajal
--- NOTE | 2017-02-04 10:28 | DS ---
PATIENT:GILBERTO SAMAYOA :49 MEDICAL RECORD: [id number] DISCHARGE SUMMARY ADMISSION DATE: 01/27/17 DISCHARGE DATE: 02/03/17 DATE OF ADMISSION: 01/27/2017 DATE OF DISCHARGE: 02/03/2017 ADMITTING DIAGNOSES: Bradycardia, renal failure, coronary artery disease, tachybrady syndrome, history of benign brain tumor, type 2 diabetes mellitus. HOSPITAL COURSE: This is a lady admitted from Dr. William's office. She was actually sent to the Emergency Room from his office with a severe bradycardia with heart rate in the 20s. Home meds were held include her diltiazem and sotalol. She was admitted to the ICU, started on IV fluids and monitored heart rate and blood pressure closely. Labs and volume closely followed. Details are well-outlined in the history of the present illness, H&P and plan. All events, lab procedures, diagnostic testing are well documented in the records. Cardiology was consulted. It was felt she needed a permanent pacemaker. She was hesitant for this at first; however, did decide to go ahead and proceed with it. She was stabilized and transferred out of the intensive care unit to the floor but she has continued to demonstrate tachycardia-bradycardia and long pauses. She was finally agreeable to placement of permanent pacemaker. She underwent permanent pacemaker without any difficulty. She is stable for dismissal home today. Dr. Chan her roof slater wants her to continue her Keflex for 5 days. She is to keep the OpSite for 5 days and then return to the clinic in 1 week for staple removal. Her new medicines include amiodarone 200 b.i.d., losartan 50 p.o. b.i.d., Norvasc 10 daily and we discontinued her sotalol, and her diltiazem. She is continued on her Cardura. Please see her med rec. We did have a difficult time with blood pressure control when she initially came in and until she got the pacemaker because some of the agents were held due to the bradycardia. Blood pressures do look better today and she is felt stable for dismissal. We will have her follow up with Dr. William and house calls. PHYSICAL EXAMINATION: VITAL SIGNS: Afebrile, pulse 70, respirations 16, blood pressure 163/88 and O2 sat 96% room air. LABORATORY DATA: Blood sugar 193, 125. White count 5, hemoglobin 11.6 and platelets are 162. Sodium 139, potassium 3.7, chloride 106, CO2 of 26, BUN 26, serum creatinine 1.4. She did have an elevation of creatinine on admission at 2.8, it did come down to 1.3 and pretty much plateaued at 1.4. DIAGNOSTIC DATA: Chest x-ray the day before discharge showing interval placement of left dual pacemaker, no evidence of any pneumothorax. She will follow up with house calls. DIAGNOSES: They are the same as above. They also include bradycardia, status post dual chamber pacemaker, acute kidney injury, improved, possible chronic kidney disease, diabetes mellitus, hypertension, improved and history of benign brain tumor, coronary artery disease and tachybrady syndrome, sick sinus syndrome. Greater than 30 minutes was spent on this discharge. DISCHARGE SUMMARY REPORT [id number] GILBERTO SAMAYOA TRANSINT:[id number] Voice Confirmation ID: [id number] DOCUMENT ID: [id number] Dictated By: CHRISTINE SORTO RN I have interviewed/examined the above patient and agree with these documented findings. ANIYAH GROVE MD at 1028 CC: [id number] DICTATION DATE: 02/03/17 1425 MOLD DESIGN ENGINEER: 02/04/17 0010 DIS IN 02/03/17 [place] [id number] [place] [address]
== END 2017-02-03 16:30 | disposition home or self-care (01) | DRG 243 ==
LOC: D.ER 17:33 → D.CVICU 18:30 → D.M2 18:30 → D.CVICU 01-28 05:57 → D.M2 01-29 14:20
PROVIDERS: Emergency Medicine; Family Medicine; ADMIT Family Medicine
PROC: 0JH606Z Insertion of Pacemaker, Dual Chamber into Chest Subcutaneous Tissue and Fascia, Open Approach (ICD-10-PCS; principal; 2017-01-31)
PROC: 02H63JZ Insertion of Pacemaker Lead into Right Atrium, Percutaneous Approach (ICD-10-PCS; 2017-01-31)
PROC: 02HK3JZ Insertion of Pacemaker Lead into Right Ventricle, Percutaneous Approach (ICD-10-PCS; 2017-01-31)
DX: I49.5 Sick sinus syndrome (principal); N17.9 Acute kidney failure, unspecified; E11.9 Type 2 diabetes mellitus without complications; I10 Essential (primary) hypertension; I25.10 Atherosclerotic heart disease of native coronary artery without angina pectoris; Z95.5 Presence of coronary angioplasty implant and graft; I48.91 Unspecified atrial fibrillation

== ENCOUNTER → 2018-01-20 19:54 | Outpatient (CLI) | payer MEDICARE, OTHER ==
[2017-01-28 09:46] VITALS: BMI 30.8
[~2018-01-20 19:54] MED LIST changes: +COZAAR50 MG PO; +KEFLEX500 MG PO; +NORVASC10 MG PO; +PACERONE200 MG PO
== END | disposition home or self-care (01) ==
LOC: D.MAMMO 11:00
DX: Z12.31 Encounter for screening mammogram for malignant neoplasm of breast (principal)

== ENCOUNTER → 2018-03-01 12:19 | Outpatient (CLI) | payer MEDICARE, OTHER ==
[2017-01-28 09:46] VITALS: BMI 30.8
== END | disposition home or self-care (01) ==
LOC: D.US 12:19
DX: I12.9 Hypertensive chronic kidney disease with stage 1 through stage 4 chronic kidney disease, or unspecified chronic kidney disease (principal); N18.3 Chronic kidney disease, stage 3 (moderate)

== ENCOUNTER 2018-03-16 07:31 | Outpatient (CLI) | payer MEDICARE, OTHER ==
[~2018-03-16] VITALS: Ht 160 cm; Wt 81.8 kg
[2018-03-16 08:30] VITALS: BP 143/82; Ht 160 cm; Wt 81.8 kg
== END 2018-03-16 15:30 | disposition home or self-care (01) ==
LOC: D.OPS 07:31
DX: N32.9 Bladder disorder, unspecified (principal); Z01.812 Encounter for preprocedural laboratory examination

== ENCOUNTER → 2018-03-24 16:29 | Outpatient (CLI) | payer MEDICARE, OTHER ==
[2018-03-16 08:30] VITALS: BMI 31.9
== END | disposition home or self-care (01) ==
LOC: D.LABREF 16:29
DX: R31.9 Hematuria, unspecified (principal)

== ENCOUNTER → 2018-03-31 08:03 | Outpatient (CLI) | payer MEDICARE, OTHER ==
[2018-03-16 08:30] VITALS: BMI 31.9
== END | disposition home or self-care (01) ==
LOC: D.NM 08:03
DX: N28.89 Other specified disorders of kidney and ureter (principal)

== ENCOUNTER → 2018-08-25 08:14 | Outpatient (CLI) | payer MEDICARE, BC ==
[2018-03-16 08:30] VITALS: BMI 31.9
== END | disposition home or self-care (01) ==
LOC: D.CT 08-20 15:30
PROVIDERS: ATTEND Internal Medicine
DX: R93.5 Abnormal findings on diagnostic imaging of other abdominal regions, including retroperitoneum (principal)

== ENCOUNTER → 2019-02-07 13:51 | Outpatient (CLI) | payer MEDICARE, BC ==
[2018-03-16 08:30] VITALS: BMI 31.9
== END | disposition home or self-care (01) ==
LOC: D.CT 13:51
PROVIDERS: ATTEND General Practice
DX: C64.1 Malignant neoplasm of right kidney, except renal pelvis (principal)

== ENCOUNTER → 2019-02-11 11:37 | Outpatient (CLI) | payer MEDICARE, BC ==
[2018-03-16 08:30] VITALS: BMI 31.9
== END | disposition home or self-care (01) ==
LOC: D.HCCARDIO 11:30
PROVIDERS: ATTEND Internal Medicine Cardiovascular Disease
DX: I34.0 Nonrheumatic mitral (valve) insufficiency (principal); Z12.31 Encounter for screening mammogram for malignant neoplasm of breast

== ENCOUNTER → 2019-05-25 09:25 | Outpatient (CLI) | payer MEDICARE, BC ==
[2018-03-16 08:30] VITALS: BMI 31.9
== END | disposition home or self-care (01) ==
LOC: D.CT 09:25
PROVIDERS: ATTEND Internal Medicine
DX: N18.3 Chronic kidney disease, stage 3 (moderate) (principal); R93.5 Abnormal findings on diagnostic imaging of other abdominal regions, including retroperitoneum

== ENCOUNTER → 2019-11-16 08:40 | Outpatient (CLI) | payer MEDICARE, BC ==
[2018-03-16 08:30] VITALS: BMI 31.9
[2019-11-16 09:30] LABS: CREATININE - SERUM 1.9 mg/dL (0.6-1.3)
== END | disposition home or self-care (01) ==
LOC: D.CT 08:40
PROVIDERS: ATTEND General Practice
DX: N28.89 Other specified disorders of kidney and ureter (principal)

== ENCOUNTER → 2020-11-08 09:59 | Outpatient (CLI) | payer MEDICARE, BC ==
[2018-03-16 08:30] VITALS: BMI 31.9
== END | disposition home or self-care (01) ==
LOC: D.CT 09:59
PROVIDERS: ATTEND General Practice
DX: N28.89 Other specified disorders of kidney and ureter (principal)